=== PATIENT | female | born 1950 | race Caucasian/White ===

== ENCOUNTER 2023-10-02 17:34 | Emergency (ER) | payer MEDICARE, SELFPAY ==
[2023-10-02] VITALS (13 sets, daily range): BP systolic 81–124; BP diastolic 42–67; PULSE 79–91; RESP 16–25; TEMP 37.1–37.6; O2SAT 94–97
--- NOTE | ~2023-10-02 | CT_ITS ---
EXAMINATION: CT brain wo con DATE: 10/02/2023 17:52 INDICATION: headache . TECHNIQUE: Computed tomography (CT) of the head was performed without intravenous contrast. The mA wa s adjusted according to patient size. Iterative reconstruction technique was employed. The dose-lengt h product was 605.33 mGy-cm. COMPARISON: None. FINDINGS: No acute intracranial hemorrhage or extra-axial fluid collection. No hydrocephalus, mass, or herniation. No acute ischemic infarct. Unremarkable dural venous sinus attenuation. No acute osseous abnormality. The aerated spaces are clear. Mild atrophy and chronic white matter change. Atherosclerotic intracranial calcification. Bilateral l ens replacements. IMPRESSION: No acute intracranial process. Reviewed, dictated and finalized at location K.
--- NOTE | ~2023-10-02 | XR_ITS ---
EXAMINATION: XR chest 2V Exam Date/Time: 10/02/2023 17:48 CDT HISTORY: fever, WEAKNESS, DIZZINESS Comparison: None. RESULT: Lines, tubes, and devices: None. Lungs and pleura: Clear. Cardiomediastinal silhouette: Unremarkable. Other: No acute osseous or upper abdominal finding. IMPRESSION: No acute cardiopulmonary process. Reviewed, dictated and finalized at location K.
--- NOTE | 2023-10-02 17:40 | ECG_ITS ---
Test Date: 2023-10-02 18:52:30 Measurements Intervals [place] Rate: 86 P: 34 RI: 175 QRS: -21 QRSD: 93 T: 5 QT: 357 QTc: 428 Interpretive Statements SINUS RHYTHM DELAYED PRECORDIAL R/S TRANSITION LOW QRS VOLTAGE IN PRECORDIAL LEADS- ANT/INF LEADS BASELINE ARTIFACT- III, AVR, AVL, AVF, V5 BORDERLINE ECG No previous ECG available for comparison Electronically Signed On 10-02-2023 19:41:04 CDT by Shemar Thompson D.O.
--- NOTE | 2023-10-02 17:41 | ED.FEVER ---
HPI - Fever General Chief Complaint: Recheck/Abnormal Lab/Rx <Keysha Sanchez PA-C - Last Filed: 10/03/23 10:05> Stated Complaint: low blood pressure, febrile, dehydration, dizzines <Keysha Sanchez PA-C - Last Filed: 10/03/23 10:05> Time Seen by Provider: 10/02/23 17:42 <Keysha Sanchez PA-C - Last Filed: 10/03/23 10:05> Focused HPI: This is a 73-year-old female that presents to the emergency department for fevers. Ongoing over the last couple of days. Reports dizziness and lightheadedness. She was seen at urgent care and blood pressure noted to be low, sent to the ER for further evaluation. Reports intermittent headaches. Denies cough, congestion, sore throat, abdominal pain, vomiting, diarrhea, dysuria, or hematuria. GENERAL: Well-appearing, well-nourished, and in no acute distress. HEAD: Normocephalic, atraumatic. CHEST: Clear to auscultation. ?No respiratory distress. HEART: Regular rate and rhythm.? NEURO: ?Alert and oriented x3. Patient screened in triage and initial orders placed.? ?Additional care and disposition to be based upon?diagnostic testing and treatment. <Keysha Sanchez PA-C - Last Filed: 10/03/23 10:05> History of Present Illness HPI Narrative: Agree with HPI. Dizziness is worse with standing and looking down. Tends to fall to left. <Brian Feng MD - Last Filed: 10/02/23 18:17> Related Data Allergies/Adverse Reactions: Allergies Allergy/AdvReac Type Severity Reaction Status Date / Time nitrofurantoin Allergy Fever Verified 10/02/23 17:44 [From Macrobid] Sulfa (Sulfonamide AdvReac Hives Verified 10/02/23 17:44 Antibiotics) <Keysha Sanchez PA-C - Last Filed: 10/03/23 10:05> Review of Systems Review of Systems: All systems reviewed & are unremarkable except as noted in HPI and below <Brian Feng MD - Last Filed: 10/02/23 18:17> Constitutional: Constitutional: Reports chills, Reports fatigue and Reports fever(s) <Brian Feng MD - Last Filed: 10/02/23 18:17> ENT: Reports vertigo, Denies nasal congestion and Denies sore throat <Brian Feng MD - Last Filed: 10/02/23 18:17> Cardiovascular: Cardiovascular: Reports no additional cardiovascular complaints <Brian Feng MD - Last Filed: 10/02/23 18:17> Respiratory: Respiratory: Reports no additional respiratory complaints <Brian Feng MD - Last Filed: 10/02/23 18:17> Gastrointestinal: Gastrointestinal: Reports no additional gastrointestinal complaints <Brian Feng MD - Last Filed: 10/02/23 18:17> Genitourinary: Genitourinary: Reports no additional female genitourinary complaints <Brian Feng MD - Last Filed: 10/02/23 18:17> PMFSH Past Medical History Medical History: Medical History (Updated 10/03/23 @ 09:45 by Keysha Sanchez PA-C) History of hypertension <Keysha Sanchez PA-C - Last Filed: 10/03/23 10:05> Surgical History Surgical History: Surgical History (Updated 10/02/23 @ 18:16 by Brian Feng MD) No pertinent past surgical history <Keysha Sanchez PA-C - Last Filed: 10/03/23 10:05> Social History Social History: Social History (Updated 10/03/23 @ 09:44 by Keysha Sanchez PA-C) Smoking status: Never smoker <Keysha Sanchez PA-C - Last Filed: 10/03/23 10:05> Exam Narrative: GENERAL: Well-appearing, well-nourished, and in no acute distress. HEAD: Normocephalic, atraumatic. ENT: Mucous membranes moist. TMs normal bilaterally. CHEST: Clear to auscultation. No respiratory distress. HEART: Regular rate and rhythm. Normal peripheral pulses. ABDOMEN: Soft, nontender, nondistended. EXTREMITIES: Normal range of motion. No edema. SKIN: Warm, dry, no rash. NEURO: Alert and oriented x3. PSYCH: Normal mood and affect. <Brian Feng MD - Last Filed: 10/02/23 18:17> Course Vital Signs Vital signs: Vital Signs Temperature 99.6 F 10/02/23 17:37 Pulse Rate 91
[2023-10-02 18:38] LABS: Basophils Absolute Auto 0.1 K/mm3 (0.0-0.1); Basophils Percent Auto 0.5 % (0.2-1.2); Eosinophils Absolute Auto 0.1 K/mm3 (0-0.3); Eosinophils Percent Auto 0.7 % (0-4.4); Hematocrit 40.5 % (37.0-47.0); Hemoglobin 13.3 g/dL (12.0-15.0); Immature Granulocyte Absolute 0.03 K/mm3 (0.00-0.031); Immature Granulocyte Percent A 0.2 % (0-0.5); Lymphocytes Absolute Auto 1.39 K/mm3 (0.9-3.2); Lymphocytes Percent Auto 11.2 % (18.3-44.2); Mean Corpuscular HGB Conc 32.8 g/dl (32-36); Mean Corpuscular Hemoglobin 29.6 pg (26-34); Mean Platelet Volume 10.6 fl (7.4-10.4); Monocytes Absolute Auto 1.3 K/mm3 (0.1-0.6); Monocytes Percent Auto 10.5 % (2.6-8.5); Neutrophils Absolute Auto 9.6 K/mm3 (1.3-6.7); Neutrophils Percent Auto 76.9 % (45.5-73.1); Platelet Count Result 208 k/mm3 (150-375); Red Cell Distribution Width 14.4 % (11.5-14.5); White Blood Count 12.4 K/mm3 (4.5-10.0)
[2023-10-02 18:48] LABS: INR 1.1; Prothrombin Time 14.9 Seconds (11.1-14.7)
[2023-10-02 18:49] LABS: Partial Thromboplastin Time 28.8 Seconds (22.3-36.8)
[2023-10-02 19:01] LABS: Appearance Urine Turbid (Clear); Bacteria Urine 4+ /hpf; Bilirubin Urine Negative (Negative); Blood Urine Trace (Negative); Color Urine Dark Yellow (Yellow); Glucose Urine UA Negative (Negative); Ketones Urine 1+ mg/dL (Negative); Leukocyte Esterase Ur 3+ LEU/UL (Negative); Need Manual Microscopic Reviewed; Nitrate Urine Positive (Negative); Protein Urine 1+ mg/dL (Negative); RBC Urine 0-2 /hpf (0-2); Specific Grav Ur 1.018 (1.001-1.035); Squamous Epithelial Cell Urine Many /hpf (Few); WBC Urine >100 /hpf (0-3); pH Urine 5.5 (5.0-9.0)
[2023-10-02 19:06] LABS: Add Urine Microscopic? YES
[2023-10-02] MEDS: KETOROLAC 15 MG/ML VIAL (*BKC) IV PUSH (19:08)
[2023-10-02] MEDS: SODIUM CHLORIDE 0.9% IV 1,000 ML 999 ML IV CONT (19:08)
[2023-10-02 19:14] LABS: Influenza A QL RT-PCR Negative (Negative); Influenza B QL RT-PCR Negative (Negative); RSV RNA, RT-PCR Negative (Negative); SARS-CoV-2 RNA PCR Negative (Negative)
[2023-10-02 19:22] LABS: Alanine Aminotransferase 26 U/L (6-35); Albumin Level 3.9 g/dL (3.5-5.1); Alkaline Phosphatase 81 U/L (38-126); Anion Gap 11 mmol/L (4-12); Aspartate Amino Transferase 32 U/L (14-36); Blood Urea Nitrogen 27 mg/dL (7-17); Calcium 9.6 mg/dL (8.4-10.2); Carbon Dioxide 22 mmol/L (22-30); Chloride 101 mmol/L (98-107); Estimated CRCL calculation 35 ml/min; Estimated Glomerular Filt Rate 37; Glucose 109 mg/dL (65-110); Sodium 134 mmol/L (137-145)
[2023-10-02 19:46] LABS: Creatine Kinase 54 U/L (30-135)
[2023-10-02 20:18] LABS: CRP 24.9 mg/dL (<1.0)
== END 2023-10-02 23:40 | disposition home or self-care (01) ==
PROVIDERS: Physician Assistant; Emergency Provider Emergency Medicine
DX: N30.00 Acute cystitis without hematuria (principal); Z20.822 Contact with and (suspected) exposure to COVID-19; I10 Essential (primary) hypertension
CPT/HCPCS: 36415; 70450; 71046; 80053; 81001; 82550; 83605; 85025; 85610; 85730; 86140; 87040; 87077; 87086; 87186; 87637; 93005; 96361; 96374; 96375; 99284; J0696; J1885; J7030

== ENCOUNTER 2024-09-02 09:49 | Outpatient (CLI) | payer MEDICARE, SELFPAY ==
--- NOTE | ~2024-09-02 | XR_ITS ---
Left Hand Technique: PA, oblique, and lateral views were obtained. Clinical History: Arthritis Findings: No acute fracture or dislocation is seen. Osseous alignment is anatomic. There is advanced degenerative change of the first CMC joint. Soft tissues are unremarkable. 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 Reviewed, dictated and finalized at location . 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
--- OUTSIDE RECORDS SUMMARY | 2024-09-02 10:36 | XMS_ITS | Referral Summary ---
Author Organization [facility] [address] [facility] Address [address] [place] [address] Care Team Providers Care Nut Sifter Name Role Phone Cynthia House MD Primary Care Provider [phone] Chase Mora DPT Unavailable [phone] Allergies Active Allergy Reactions Criticality Noted Date Comments Phenazopyridine Fever Medium 01/18/2021 Mirtazapine Unknown 04/19/2014 Nitrofurantoin Shortness of breath High 04/19/2014 Paroxetine Unknown 04/19/2014 Sulfa (Sulfonamide Antibiotics) Fever Medium 03/22 Medications OneTouch Verio test strips strip TEST BLOOD SUGAR ONCE DAILY DIRECTED 11/05/2020 Active cholecalciferol (VITAMIN D-3) 25 mcg (1,000 unit) tablet Take 2,000 Units by mouth daily Active cyanocobalamin (Vitamin B-12) 1,000 mcg tablet Take 1,000 mcg by mouth daily Active OneTouch Delica Plus Lancet 33 gauge misc TEST BLOOD SUGAR ONCE DAILY 11/05/2020 Active losartan (COZAAR) 25 mg tablet TAKE 1 TABLET(25 MG) BY MOUTH DAILY 11/27/2020 Active meloxicam (MOBIC) 15 mg tablet Take 15 mg by mouth daily 11/05/2020 Active oxybutynin XL (DITROPAN-XL) 5 mg 24 hr tablet TAKE 1 TABLET(5 MG) BY MOUTH DAILY 12/25/[address] (PROTONIX) 40 mg EC tablet Take by mouth daily 11/30/2020 Active propranoloL (INDERAL) 20 mg tablet Take 1 tablet by mouth 2 (two) times a day 10/14/2020 Active Active Problems Problem Noted Date Diagnosed Date Prediabetes 10/27/2020 Other chronic pain 06/26/2018 Right shoulder pain 06/26/2018 Incontinence 05/16/2018 Cataracts, bilateral 04/22/2016 Insomnia 01/18/2016 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 Never 01/18/2021 Average Number of Drinks Not on file 021 Frequency of Binge Drinking Not on file 03/2020 Personal Safety Answer Date Recorded Getting School Help Needed Not on file 06/03 Comments Unknown Sex and Gender Information Value Date Recorded Sex Assigned at Not on file Legal Sex Female 10:19 AM CDT Gender Identity Not on file Sexual Orientation Not on file Last Filed Vital Signs Vital Sign Reading Time Taken Comments Blood Pressure 123/61 09/27/2021 11:03 AM CDT Pulse 61 09/27/2021 11:03 AM CDT Temperature - - Respiratory Rate 16 09/27/2021 11:03 AM CDT Oxygen Saturation - - Inhaled Oxygen Concentration - - Weight 88.5 kg (195 lb) 01/18/2021 10:57 AM CDT Height 168.9 cm (5' 6.5) 01/18/2021 10:57 AM CD T Body Mass Index 31 01/18/2021 10:57 AM CDT Plan of Treatment Not on file Insurance [facility] MEDICARE ADVANTAGE [facility] MEDICARE ADVANTAGE Care Teams Nut Sifter Relationship Specialty Start Date End Date Cynthia House MD [address] [place] [address] PCP - General Family Practice 11/26/20 Chase Mora DPT [id number] [facility] [address] [address] [place] [address] Physical Therapist Physical Therapy 03/04/21
--- OUTSIDE RECORDS SUMMARY | 2024-09-02 10:36 | XMS_ITS | Continuity of Care Document ---
Author Organization [facility], L TD Address [address] [place] [address] Phone Care Team Providers Care Side Trimmer Name Role Phone Oberreiter OD, Maggie Unavailable Unavailabl e Allergies, Adverse Reactions, Alerts Substance Reaction Status Criticality NITROFURANTOIN MACROCRYSTALLINE Trouble Breathing Acti ve Low nitrofurantoin Trouble Breathing Active Low Sulfa (Sulfonamide Antibiotics) Fever Active Low Medications Medication Instructions Dosage Effective Dates (start - stop) Status Comments Miebo (PF) 100 % eye drops instil 1 gt BID OU - Active TheraTears 1 % gel in a dropperette instil 1 gt PRN OU - Active ZEPBOUND (unknown strength) inject by subcutaneous route every week Not Available - Active Xiidra 5 % eye drops in a dropperette instill 1 drop by ophthalmic route 2 times every day into both eyes approximately 12 hours apart 1.00 drop - Active pregabalin 75 mg capsule take 1 capsule by oral route 2 times every day 75 MG - Active meloxicam 7.5 mg tablet take 1 tablet by oral route every day 7.5 MG - Active duloxetine 20 mg capsule,delayed release take 1 capsule by oral route 2 times every day 20 MG - Active RANITIDINE HCL (unknown strength) take 1 tablet by oral route 2 times every day Not Available - Active LOSARTAN POTASSIUM (unknown strength) take 1 tablet by oral route every day Not Available - Active Lo-Dose Aspirin 81 mg tablet,delayed release take 1 tablet by oral route every day - Active Procedures Procedure Date EYE EXAM ESTABLISHED PAT REFRACTION EYE EXAM ESTABLISHED PAT EYE EXAM ESTABLISHED PAT REFRACTION NO CHARGE EYE EXAM ESTABLISHED PAT EYE EXAM ESTABLISHED PAT EYE EXAM ESTABLISHED PAT REFRACTION EYE EXAM ESTABLISHED PATIENT EYE EXAM ESTABLISHED PAT COVER EYE W/MEMBRANE Scan Image OCT/Retinal Bandage CL Fitting Prokera Ring/BioDOptix membrane/Amniotic Membrane EYE EXAM ESTABLISHED PAT EYE EXAM ESTABLISHED PAT REFRACTION Wellness/Screening Photo PUNCTAL PLUGS EYE EXAM ESTABLISHED PATIENT REFRACTION EYE EXAM ESTABLISHED PATIENT POST CATARACT LASER SURGERY, YAG LASER M FUNDUS PHOTOGRAPHY POST CATARACT LASER SURGERY, YAG LASER M EYE EXAM ESTABLISHED PATIENT EYE EXAM ESTABLISHED PAT EYE EXAM ESTABLISHED PAT Bandage CL Fitting EYE EXAM ESTABLISHED PAT REFRACTION PUNCTAL PLUGS EYE EXAM ESTABLISHED PATIENT EYE EXAM ESTABLISHED PAT EYE EXAM ESTABLISHED PATIENT, MEDICAL Ju Postoperative Exam Postoperative Exam Postoperative Exam Postoperative Exam REFRACTION NO CHARGE Postoperative Exam CATARACT SURG W/IOL Multi-Focal With ARC, LenSx, Each Eye Ma IOL MASTER, PROF COMP ONLY Prepay Postoperative Exam CATARACT SURG W/IOL Multi-Focal With ARC, LenSx, Each Eye Fe Post Operative Kit / Medical Supply By P rescription Prepay IOL MASTER CORNEAL TOPOGRAPHY EYE EXAM ESTABLISHED PATIENT, MEDICAL Ja INSERT INITIAL PLUG, RIGHT LOWER LID Mar INSERT INITIAL PLUG, LEFT LOWER LID Scan Image OCT/Retinal INCLUDED CONTACT LENS EXAM EYE EXAM, EXISTING PATIENT VISION REFRACTION OPTIONAL UPDATE EYE EXAM, NEW PATIENT MEDICAL 4 Advance Directives Directive Yes / No Effective Date File Name No Information Encounters Encounter Description Practice Location Reason(s) For Visit Diagnoses Date Provider Providers Copied on Encounter [facility], [address] [place] [address], [id number] , [phone] [facility] f/u Dry Eye OU (chief complaint) Dry eye syndrome of bilateral lacrimal glands 5 Antonia Serrano. [address], [place], [place], [id number], [place]. tel:[phone] Referring Provider: Maggie Lee [address], [place], [address]. tel:[phone] [facility], [facility], [address] [place] [address], [id number] , [place] [phone] [facility] vision exam (chief complaint) PrediabetesE ndothelial corneal dystrophy, bilateralDry eye syndrome of bilateral lacrimal glandsMyopia , left eyePresbyopi aRegular astigmatism, bilateralVit reous degeneration , bilateralPun ctate keratitis, right eye 5 Antonia Serrano. [address], [place], [place], [id number], [place]. tel:[phone] Referring Provider: Patrizia Ortega [address], [place], [address]. tel:[phone] [facility], [address] [place] [address], [id number] , [place] tel: [phone] [facility]- No Information 4 Obed Serrano. [address], [place], [place], [id number], [place]. tel:[phone] [facility], [address] [place] [address], [id number] , [place] tel: [phone] [facility] f/u Neurotrophic Keratoconjunc tivitis OU (chief complaint) Neurotrophic keratoconjun ctivitis, bilateralDry eye syndrome of bilateral lacrimal glandsEndoth elial corneal dystrophy, bilateral 4 Oberreitjame Serrano. [address], [place], [place], [id number], [place]. tel:[phone] Referring Provider: Maggie Lee, [address], [place], [address]. tel:[phone] [facility], [address] [place] [address], [id number] , [place] tel:[phone] [facility] f/u Neuratrophic keratoconjunc tivitis (chief complaint) Neurotrophic keratoconjun ctivitis, bilateral 3 Antonia Serrano. [address], [place], [place], [id number], [place]. tel:[phone] Referring Provider: Maggie Lee, [address], [place], [address]. tel:[phone] [facility], [address] [place] [address], [id number] , [place] tel:[phone] [facility] f/u Neurotrophic Keratoconjuct ivitis (chief complaint) Neurotrophic keratoconjun ctivitis, bilateral 3 Antonia Serrano. [address], [place], [place], [id number], [place]. tel:[phone] Referring Provider: Maggie Lee, [address], [place], [address]. tel:[phone] [facility], [address] [place] [address], [id number] , [place] tel:[phone] [facility] f/u Corneal Dystrophy OU, Vitreous Degen OD, (chief complaint) Neurotrophic keratoconjun ctivitis, bilateral 3 Antonia Serrano. [address], [place], [place], [id number], [place]. tel:[phone] Referring Provider: Maggie Lee, [address], [place], [address]. tel:[phone] [facility], [address] [place] [address], [id number] , [place] tel:[phone] [facility] blurry vision OU (chief complaint) Dry eye syndrome of bilateral lacrimal glandsPresen ce of intraocular lensHypermet ropia, right eyeMyopia, left eyeRegular astigmatism, bilateralPre sbyopiaEndot helial corneal dystrophy, bilateralVit reous degeneration , right eyeNeurotrop hic keratoconjun ctivitis, bilateral 3 Antonia Serrano. [address], [place], [place], [id number], [place]. tel:[phone] Referring Provider: Maggie Lee, [address], [place], [address]. [phone] [facility], [address] [place] [address], [id number] , [place] tel:[phone] [facility] f/u Fuchs OU and Dry Eye Syndrome OU (chief complaint) Endothelial corneal dystrophy, bilateralDry eye syndrome of bilateral lacrimal glandsMyopia , left eyePresbyopi a Sep-2 3-202 2 Oberreiter Maggie. [address], [place], [place], [id number], [place]. tel:[phone] Referring Provider: Maggie Lee, [address], [place], [address]. tel:[phone] [facility], [address] [place] [address], [id number] , [place] tel:[phone] [facility] F/u K sicca, Dry Eye (chief complaint) Dry eye syndrome of bilateral lacrimal glandsEndoth elial corneal dystrophy, left eyeEndotheli al corneal dystrophy, right eyeEndotheli al corneal dystrophy, bilateral 2 Oberreiter Maggie. [address], [place], [place], [address], [place]. tel:[phone] Referring Provider: Maggie Lee, [address], [place], [address]. tel:[phone] [facility], [address] [place] [address], [id number] , [place] tel:[phone] [facility] dryness, irritation and slight burning (chief complaint) Keratoconjun ctivitis sicca, not specified as Sj g meagan's, bilateralDry eye syndrome of bilateral lacrimal glands 2 Oberrjavier Serrano. [address], [place], [place], [id number], [place]. tel:[phone] Referring Provider: Maggie Lee, [address], [place], [address]. tel:[phone] [facility], [address] [place] [address], [id number] , [place] tel:[phone] [facility] blurry vision OU (chief complaint) PresbyopiaPr ediabetesPre sence of intraocular lensDry eye syndrome of bilateral lacrimal glandsEncoun ter for examination of eyes and vision with abnormal findingsOthe r vitreous opacities, bilateralDry eye syndrome of right lacrimal glandKeratoc onjunctiviti s sicca, not specified as Sj g meagan's, bilateralHyp ermetropia, right eyeRegular astigmatism, right eyeMyopia, left eye David-0 2 Antonia Serrano. [address], [place], [place], [id number], [place]. tel:[phone] Referring Provider: Maggie Lee, [address], [place], [address]. tel:[phone] [facility], [address] [place] [address], [id number] , [place] tel: [phone] [facility] has improved (chief complaint)VA has improved (chief complaint) Other specified postprocedur al statesPresen ce of intraocular lensRegular astigmatism, left eyePresbyopi Navin eye syndrome of bilateral lacrimal glandsVitreo us degeneration , right eye Mar-2 1 Antonia Serrano. [address], [place], [place], [id number], [place]. tel:[phone] [facility], [address] [place] [address], [id number] , [place] tel: [phone] [facility] blurry vision (chief complaint)geoffrey rry vision (chief complaint) Other secondary cataract, left eye May-1 1 Martin Stone. [address] [place] [address], [id number], [place]. tel:[phone] [facility], [address] [place] [address], [id number] , [place] tel: [phone] [facility] blurry vision (chief complaint)geoffrey rry vision (chief complaint) Presence of intraocular lensOther secondary cataract, bilateralVit reous degeneration , right eyeOther secondary cataract, right eyeDrusen (degenerativ e) of macula, bilateral Mar-0 1 Martin Stone. [address] [place] [address], [id number], [place]. tel:[phone] [facility], [address] [place] [address], [id number] , [place] tel: [phone] [facility] Sx improving (chief complaint)Sx improving (chief complaint) Injury of conjunctiva and corneal abrasion without foreign body, left eye, subsequent encounter 1 Oberreiter Maggie. [address], [place], [place], [id number], [place]. tel:[phone] [facility], [address] [place] [address], [id number] , [place] tel: [phone] [facility] Pain has resolved, vision remains blurry (chief complaint)Maximiliano n has resolved, vision remains blurry (chief complaint) Injury of conjunctiva and corneal abrasion without foreign body, left eye, sequelaPrese nce of intraocular lensOther secondary cataract, bilateral 1 Oberreiter Maggie. [address], [place], [place], [id number], [place]. tel:[phone] [facility], [address] [place] [address], [id number] , [place] tel: [phone] [facility] pain, watering, redness, blurry vision (chief complaint)maximiliano n, watering, redness, blurry vision (chief complaint) Injury of conjunctiva and corneal abrasion without foreign body, left eye, initial encounter 1 Oberreiter Maggie. [address], [place], [place], [id number], [place]. tel:[phone] [facility], [address] [place] [address], [id number] , [place] tel: [phone] [facility] no problems with vision and no complaints (chief complaint)Pt. declines Wellness/Scre ening photos (chief complaint)no problems with vision and no complaints (chief complaint)Pt. declines Wellness/Scre ening photos (chief complaint) PresbyopiaPr esence of intraocular lensRegular astigmatism, right eyeOther secondary cataract, bilateralTea r film insufficienc y of bilateral lacrimal glands 9 Oberreiter Maggie. [address], [place], [place], [id number], [place]. tel:[phone] [facility], [address] [place] [address], [id number] , [place] tel: [phone] [facility] no problems with vision and no complaints (chief complaint)no problems with vision and no complaints (chief complaint) Dry eye syndrome of bilateral lacrimal glands 8 Oberreiter Maggie. [address], [place], [place], [id number], [place]. tel:[phone] [facility], [address] [place] [address], [id number] , [place] tel: [phone] [facility] blurry near vision sc gls (chief complaint)geoffrey rry near vision sc gls (chief complaint) Presence of intraocular lensOther secondary cataract, bilateralDry eye syndrome of right lacrimal glandDry eye syndrome of left lacrimal gland 8 Oberreiter Maggie. [address], [place], [place], [id number], [place]. tel:[phone] [facility], [address] [place] [address], [id number] , [place] tel: [phone] [facility] blurry vision (chief complaint)geoffrey rry vision (chief complaint) Cataract extraction status, right eyeCataract extraction status, left eyePresence of intraocular lensDry eye syndrome of bilateral lacrimal glandsVitreo us degeneration , right eye 7 Oberreiter Maggie. [address], [place], [place], [id number], [place]. tel:[phone] [facility], [address] [place] [address], [id number] , [place] tel: [phone] [facility] continued blurry vision (chief complaint)con tinued blurry vision (chief complaint) Presence of intraocular lensCataract extraction status, right eyeCataract extraction status, left eyeKeratocon junctivitis sicca, not specified as Sj g meagan's, bilateral Oberreiter Maggie. [address], [place], [place], [address], [place]. [phone] [facility], [address] [place] [address], [id number] , [place] tel:[phone] [facility] continued blurry vision (chief complaint)con tinued blurry vision (chief complaint) Presence of intraocular lensCataract extraction status, right eyeCataract extraction status, left eyeDry eye syndrome of bilateral lacrimal glands Jun- Oberreiter Maggie. [address], [place], [place], [address], [place]. tel:[phone] [facility], [address] [place] [address], [id number] , [place] tel:[phone] [facility] decreased vision (chief complaint)dec reased vision (chief complaint) Cataract extraction status, right eyeCataract extraction status, left eyePresence of intraocular lensDry eye syndrome of bilateral lacrimal glandsBilate ral keratoconjun ctivitis sicca, not specified as Sjogren's Oberreiter Maggie. [address], [place], [place], [id number], [place]. tel:[phone] [facility], [address] [place] [address], [id number] , [place] tel:[phone] [facility] blurry vision OD (chief complaint)scr atchy sensation OD (chief complaint)vis ion is improved OS (chief complaint)geoffrey rry vision (chief complaint)scr atchy sensation (chief complaint)vis ion is improved (chief complaint) No Information Mar-0 Oberreiter Maggie. [address], [place], [place], [id number], [place]. tel:[phone] [facility], [address] [place] [address], [id number] , [place] tel: [phone] [facility] No Information 7 Martin Stone. [address] [place] [address], [id number], [place]. tel:[phone] [facility], [address] [place] [address], [id number] , [place] tel: [phone] [facility] No Information 0 7 Martin Stone. [address] [place] [address], [id number], [place]. tel:[phone] Referring Provider: Chase Lee, [address] [place] [address], [address]. tel:[phone] [facility], [address] [place] [address], [id number] , [place] tel:[phone] [facility] No Information 7 Martin Stone. [address] [place] [address], [id number], [place]. tel:[phone] [facility], [address] [place] [address], [id number] , [place] tel:[phone] [facility] vision is improved OS (chief complaint)den ies pain or discomfort OS (chief complaint)no change in vision OD (chief complaint)vis ion is improved (chief complaint)den ies pain or discomfort (chief complaint)no change in vision (chief complaint) No Information 7 Antonia Serrano. [address], [place], [place], [id number], [place]. tel:[phone] [facility], [address] [place] [address], [id number] , [place] tel:[phone] [facility] No Information 7 Martin Stone. [address] [place] [address], [id number], [place]. tel: [phone] [facility], [address] [place] [address], [id number] , [place] tel: [phone] [facility] No Information 7 Oberreiter Maggie. [address] [place], [place], [id number], [place]. [phone] [facility], [address] [place] [address], [id number] , [place] tel: [phone] [facility] No Information 7 Martin Stone. [address] [place] [address], [id number], [place]. tel: [phone] Referring Provider: Chase Lee, [address] [place] [address], [address]. tel:[phone] [facility], [address] [place] [address], [id number] , [place] tel: [phone] [facility] . (chief complaint) No Information 7 Martin Stone. [address] [place] [address], [id number], [place]. tel:[phone] [facility], [address] [place] [address], [id number] , [place] tel: [phone] [facility] blurry vision (chief complaint)geoffrey rry vision (chief complaint) PresbyopiaRe gular astigmatism, bilateralDry eye syndrome of bilateral lacrimal glandsCatara ct extraction status, right eyeCataract extraction status, left eye 7 Martin Stone. [address] [place] [address], [id number], [place]. tel:[phone] [facility], [address] [place] [address], [id number] , [place] tel: [phone] [facility] No Information 0 6 Oberreiter Maggie. [address], [place], [place], [id number], [place]. [phone] [facility], [facility], [address] [place] [address], [id number] , tel:[phone] [facility] blurry vision, glare (chief complaint)geoffrey rry vision, glare (chief complaint) Myopia, bilateralTea r film insufficienc y of bilateral lacrimal glands 6 Oberreiter Maggie. [address], [place], [place], [id number], [place]. tel:[phone] [facility], [address] [place] [address], [id number] , tel:[phone] [facility] shimmering light (chief complaint) Senile nuclear sclerosisTea r film insufficienc y, unspecifiedS enile nuclear sclerosisTea r film insufficienc y, unspecifiedO ther forms of migraine without mention of intractable migraineOthe r forms of migraine without mention of intractable migraine Oberreiter Maggie. [address], [place], [place], [id number], [place]. tel:[phone] Family History Family Member Type Diagnosis Age At Onset Mother Problem (finding) glaucoma Mother Problem (finding) diabetes melli tus in first degree relative parents Problem (finding) cataract Mother Problem (finding) HBP Problem (finding) No Family hist ory of Macular Degeneration Payers Payer name Insurance type Covered green party ID Authoriza tion(s) [employer] [id number] Social History Type Description Quantity Date Captured Comments Alcohol Use Details Caffeine Use Details Tobacco Use Status Current non-smoker Smoking Status Never smoker Non-Smoking Tobacco Use Details : No Details Available : No Details Available Sex Female Chief Complaint And Reason For Visit From encounter dated '06/05/2024 09:45'. f/u Dry Eye OU (chief complaint). Description: The 73 year old patient presents for f/u Dry Eye OU.Pt. states D and N vision OU c gls has been good and stable. Pt. denies pain and feels dryness has improved. Pt. is using Xiidra BID OU and Miebo BID OU (doesn't always use BID OU every day on Xiidra or Miebo) and Refresh angel QHS OU. Pt. states she feels using angel at nighttime has greatly im proved dryness. Reason For Referral Reason For Referral No Information Plan Of Treatment Date Type Action Status Future Order: Radiology Order We llness/Screening Photo ([id number]), Collected on: Ordered History Of Present Illness Encounter Date Complaint History Of Prese nt Illness f/u Dry Eye OU The 73 year old patient presents for f/u Dry Eye OU. Pt. states D and N vision OU c gls has been good and stable. Pt. denies pain and feels dryness has improved. Pt. is using Xiidra BID OU and Miebo BID OU (doesn't always use BID OU every day on Xiidra or Miebo) and Refresh angel QHS OU. Pt. states she feels using angel at nighttime has greatly improved dryness. vision exam The 73 year old patient presents for vision exam, Fuch's OU, IOL OU, Dry Eye OU, Pre-Diabetic Exam. Pt. states for the past 3 months, D and N vision OU c gls has decreased. Pt. states everything is very blurry. Pt. states she believes the decrease in vision is from the dryness. Pt. states she has been on Zepbound for almost 1 yr and would like to know if that can cause a decrease in vision. pt. states for the past 2-3 months, vision has been so blurry, she is seeing double vision. Images are vertical, but slightly horizontal. Pt. denies pain OU, but states OU feel dry. Pt. states she does not remember to use Xiidra and uses TheraTears PRN OU c short term relief. Pt. is Pre-Diabetic. pt. is supposed to control DM with diet/exercise. Pt. is unsure if BS are stable. pt. would like letter sent to PCP Dr. Cynthia House. f/u Neurotrophic Keratoconjunctivitis OU The 72 year old patient presents for f/u Neurotrophic Keratoconjunctivitis OU. Pt. states D and N vision OU c gls has been unchanged since last visit. Pt. states she has not noticed any improvident since using Oxervate. Pt. denies pain currently. pt. states the last 2 days of she was to use Oxervate, she did not, 03/13 and 03/14. Pt. states [place] was [id number] and did not get the change to use them. Pt. is currently using iVizia PRN OU c relief. f/u Neuratrophic keratoconjunctivitis The 72 year old patient presents for evaluation of f/u Neuratrophic keratoconjunctivitis. Pt states DVA and NVA is okay c gls OU, same as last exam. Pt says she feels like OU are bruised, and rubbing them makes it worse. Pt is using Oxerate 1 gt OU every 2-6 hours. f/u Neurotrophic Keratoconjuctivitis The 72 year old patient presents for evaluation of f/u Neurotrophic Keratoconjuctivitis. Pt states DVA and NVA is good c gls OU. Pt states the drops sting and make OU feel bruised. Pt is using Oxervate 1 gt OU 2-6x day. f/u Corneal Dystroph y OU, Vitreous Degen OD, The 72 year old patient presents for evaluation of f/u Corneal Dystrophy OU, Vitreous Degen OD, Neurotrophic Keratoconjunctivitis OU and Dry Eye OU. Pt sttaes DVA and NVA is still blurry OU c gls. Pt states she feels like OU are bruised but they are just sore, she feels this constantly. Pt is using Oxervate 1 gt OU 6x day. blurry vision OU The 72 year old patient presents for blurry vision OU. Pt. states about 6 weeks ago, she was prescribed a new med Topamax and after beginning that, her vision became very blurry D and N c gls and she was not able to see well enough to drive or read. Pt. states she has since decreased the dose of Topamax and now her vision is not as blurry as it was on the stronger dose. Pt. states her vision was slightly blurry prior to taking Topamax, but not as severe and believes the medication has caused her vision to be blurry. pt. states her mother had glaucoma and she is concerned she may be developing glaucoma. Pt. states OU are dry and uses Xiidra BID OU and AT (unsure brand) PRN OU c relief. f/u Fuchs OU and Dry Eye Syndrome OU The 71 year old patient presents for evaluation of f/u Fuchs OU and Dry Eye Syndrome OU. Pt states vision has slightly improved since last visit. PT states BCL fell out yesterday sometime in OS. No pain or discomfort. Pt using Xiidra BID OD and IVizia 2-3 times a day OU. F/u K sicca, Dry Eye The 71 year old patient presents for evaluation of F/u K sicca and Dry Eye in the right eye and left eye. PT reports dryness still present OU. PT reports blurry vision. It affects both near and far vision. PT reports roadsigns and reading fine print has become impossible and has to use Magnifying glass for NVA. PT reports eyes feel irritated and very dry and tired. Patient denies: pain. PT using Xiidra BID OU c relief. PT using OTC AT QD/BID OU c relief. dryness, irritation and slight burning The 71 year old patient presents for F/u Dry Eye OU & evaluation of dryness, irritation and slight burning in the right eye and left eye since last exam. Pt notices the same amount of blurry vision in OU. It affects DVA c gls. Pt denies any issues c NVA c gls. Patient denies: change in vision. Currently using Restasis OU BID & OTC AT OU QAM/BID c slight relief. blurry vision OU The 71 year old patient presents for f/u Refractive Error OU, Dry Eye OU, IOL OU, and Vitreous Degeneration OU. PT reports of blurry vision OU in the right eye and left eye. It started 6+ months ago. It affects both D & N vision c gls OU. PT denies pain or discomfort. PT is using OTC AT OU BID OU without relief. VA has improved The 69 Year old female presents for f/u Post Op YAG OU. Pt reports VA has improved in the right eye and left eye since YAG laser. It affects both near and far vision. The patient denies COVID-19 symptoms - temperature normal and pain or discomfort. Pt uses OTC AT BID OU c relief. blurry vision The 69 Year old female presents for YAG OS. Pt reports blurry vision in the left eye gradually over time got worse. It affects both near and far vision. Pt says VA has improved since laser OD but still having lots of floaters. The patient denies pain or discomfort and COVID-19 symptoms - temperature normal. Pt using OTC AT BID OU. blurry vision The 69 Year old female presents for Yag Eval OU. Pt reports blurry vision in the right eye and left eye a couple of months. It affects both near and far vision. Watching TV has gotten worse. Everything has a shadow and its hard to read. The patient denies pain or discomfort and COVID-19 symptoms - temperature normal. Pt using OTC AT at least once a day OU. Sx improving The 69 Year old female presents for F/U Corneal Abrasion OS and BCL in place OS. Pt reports Sx improving in the left eye since last exam. It affects both near and far vision OS c gls. The patient denies COVID-19 symptoms - temperature normal and pain or discomfort. Using Ofloxacin QID OS & OTC AT QID OD. Pain has resolved, v ision remains blurry The 69 Year old female presents for follow up Corneal Abrasion OS. Pt reports BCLs remains in good position. Pt reports pain has resolved, vision remains blurry in the left eye since last exam 5 days ago. The onset was gradual. It affects both near and far vision with gls. It occurs constantly. The condition is not any better. The patient denies pain or discomfort and COVID-19 symptoms - temperature normal. Pt is currently using Ofloxacin QID OS and AT's TID-QID OD. pain, watering, redn ess, blurry vision The 69 Year old female presents for pain, watering, redness, blurry vision in the left eye. It started about 4 hour(s) ago. The onset was this morning. It affects both near and far vision c gls. No sx OD. The symptom is constant. The patient denies COVID-19 symptoms - temperature normal. Pt uses AT PRN OU. no problems with vis ion and no complaints The 68 Year old female presents for F/U IOL OU, PCO OU & Sicca OU. Pt reports no problems with vision and no complaints in the right eye and left eye since last exam. Vision good, stable and constant D & N OU sc & c OTC readers. The patient denies pain or discomfort. No eye meds or OTC AT. Pt. declines [facility] s/Screening photos NOTE: Pt. declines Wellness/Screening photos no problems with vis ion and no complaints The 67 Year old female presents for F/U dry eye's, pt has MF IOL 05/2016. Pt reports of no new problems with vision and no complaints in the right eye and left eye. since last exam 1mo ago. Vision good, stable and constant D & N c gls.. The patient denies pain or discomfort. Using Xiidra OD BID (c/o gtt sting) , no gtts OS blurry near vision sc gls The 67 Year old female presents for follow-up of Presbyopia OU, Dry Eye OU, MF IOL OU, and a Hx of Histoplasmosis. Pt. reports blurry near vision sc gls in the right eye and left eye since last exam. It affects near vision. Pt. has gls made for near vision elsewhere. She states it is frustrating to need to use them. Distance vision is good, stable, & constant sc. The patient denies pain or discomfort. No eye meds. blurry vision The 66 Year old female presents for follow up of MF IOL Symfony LenSx c ARC OU (OS-05/10/16, OD-05/24/16 [facility]). Pt reports of blurry vision in the right eye and left eye since last exam 6 months ago. It affects near vision. DVA is good and stable sc OU. The patient denies pain or discomfort, but complains of glare OD>OS. Pt has not been using Xiidra gtts. continued blurry vision The 66 Y ear old female presents for follow up of Dry Eye OU. Pt reports of continued blurry vision in the right eye and left eye since last exam 1 month ago. It affects near vision c OTC readers OU. DVA is good and stable sc OU. The patient denies pain or discomfort. Using Xiidra gtt BID OU, and AT gtt PRN OU. continued blurry vision The 65 Y ear old female presents for F/U dry eye's. Patient has a HX of Symphony MF IOL OU. Patient reports of continued blurry vision in the right eye and left eye. It affects near vision. The patient denies pain or discomfort. Using Xiidra OU BID, and AT OU BID decreased vision The 65 Year old female presents for follow up of MF IOL c LenSx c ARC OU (OD-05/24/16, OS-05/10/16). Pt reports of decreased vision in the right eye and left eye since having IOL. It affects near vision sc OU. DVA is improved, and stable sc OU. The patient denies pain or discomfort, but complains of glare at night. Using AT gtt PRN OU, and Pred Acetate gtt BID OU. scratchy sensation scratchy sens ation OD blurry vision blurry vision OD vision is improved vision is imp roved OS vision is improved vision is imp roved OS no change in vision no change in vision OD denies pain or discomfort denies pain or discomfort OS blurry vision The 65 Year old female presents as a new patient to [facility], refer'd by NELSON for Cataract. Patient complains of blurry vision in the right eye and left eye. x several months ago. The onset was gradual. It affects both near and far vision. It occurs constantly. The condition is worsening. The patient denies pain or discomfort. No gtts blurry vision, glare The 65 Year old female presents for f/u of Cataracts OU, and hx of Ocular Migraines. Pt reports of blurry vision, glare in the right eye and left eye, since last exam 2 years ago. It affects both near and far vision, pt is unsure if the decrease is due to cataracts of need for glasses. Pt states that lately it has been better for her to take glasses off to do any up close detail work. The patient denies pain or discomfort OU. Pt does not use any eye meds OU. 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 Related to Dry eye syndrome of bilateral lacrimal glands Follow up - Return i n 6 months with NELSON for T, Slamp. 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 Dry eye OS>OD: Corneas are mildly irregular OU. Tear B.U T. is 6 secs in the OD and 5 secs in the OS. Recommend Pt. continue using Xiidra for another month BID OU (was just OS). Gave another sample box. Pt. may stop when the sample box is gone. Recommend Pt. start using an artificial tear to use BID-QID OU. Pt. instructed to call with any problems, questions or concerns. Follow up in 6 months to check dryness. 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 Impression/Plan - 1. No MR performed today2. Implant OU centered, and in good position. Mild PCO has formed, however not ready for Laser treatment3. Pt does have very dry eye's OD>OS, will have pt re-start Xiidra (sample given) OD BID, no need to use in the OS. Follow up - Return i n 6 months with NELSON for Refract T & D. Impression/Plan - 1. IOL OU well centered with trace PCO. No surgery indicated at this time. Pt. is to let us know if vision becomes bothersome and we will have Pt. see RML for YAG laser. 2. Dry eye OU: Pt. is to continue using Artificial tears PRN OU. Plugs are in place BLL's today. 3. Recommned some kiah color tinted glasses for glare duting the day, Yello for driving at night. Set glasses Rx today for reading glasses to help with fine print. PL SPH OU with a +2.00 ADD. 4. Dermatochalasis BUL's: Pt. would like to see Dr. Umaña for evaluation. Will refer. Pt. instructed to call with any problems. See Pt. back in 6 months for yearly, dilated exam. Follow up - Return i n 6 months with NELSON for Refract, Deedee Man. Impression/Plan - 1. Well centered MF IOL's. Vision is 20/20 in the distance and 20/25 up close. Pt states computer reading is good, but really small fine print is difficult. 2. Dry eye OU: Moderate. Tear B.U T. today is 3 secs OD and 2 secs OS, improving since starting Xiidra, but still dry. Pt. is to continue using Xiidra BID OU. Pt. can continue using Artificial tears PRN OU for dryness and comfort. *Recommend waiting 6 months before updating glasses for reading. Pt wants to get plano glasses and reading at the bottom. Pt. instructed to call if she wants the reading glasses sooner and we can make the glasses Rx for reading. Per NELSON will N/C f/u in 6 months. Follow up - Return i n 1 month with NELSON for Deedee Man. Impression/Plan - 1. IOL OU: Well cemtered MF and vision continue to be stable. Pt is using readers for fine print. Recommend using +1.75 or +2.00's when needing to see fine print or anything small like sewing/needle work. Pt. feels like she even needs the readers at the grocery store when reading labels. 2. Dry eye OU: Improved since starting Xiidra. Plugs are still in BLL's Pt. is to continue using the Xiidra BID OU and Artificial tears PRN OU for dryness and comfort. Pt. instructed to call with any problems. See Pt. back in one more month and the determine from there what reading power will be needed. Follow up - Return i n 1 month with NELSON for Deedee Man. (dry eye f/u) Impression/Plan - 1. IOL OU: Well centered MF and vision is stable. Pt is to continue using the Pred Forte until the bottle is gone. 2. Dry eye OU: Moderate. Dryness is present OU with no improvement from use of artificial tears. performed fluorescein clearance test confirming suppressed tear production. Even with plugs, eyes are still very dry and will need to supplement with Xiidra. Start using Xiidra BID OU. 3. Pt can use a low power reader for sowing and very small print. Will re-evaluate in 1 month and verify what strength will be the best. Pt is to f/u in 1 month for dry eye f/u. Pt instructed to call with any problems. Follow up - per surgery Impression/Plan - Ba ck of the eyes look healthy. No glaucoma, mac degen, or retina problems. Eyes look very dry so inserted 0.6mm punctal plugs BLL to help better lubricate. This will give the eyes a better healing environment for the cataract surgery. Cataracts present OU; best option is surgery. Patient viewed Dr. Salazar's cataract video. In the video, explained cataract surgery procedure. Risks with surgery include bleeding, swelling, infection, need for more surgery and loss of vision. Only one eye is done at a time. May have irritation for a few days following surgery. IOL options to choose from based on the health of your eyes: 1. Basic cataract surgery: will need glasses distance & near after surgery. 2. Astigmatism correction: Best distance vision. Will need glasses for near. 3. Multifocal w/ some astigmatism correction: 95% of activities without glasses; may need glasses for very near tasks and low lighting situations. Pt. is a good LenSx candidate if she chooses PV. Pt. chooses LenSx c MF IOL OU (Symfony, will set slightly near on the non-dominant eye). Will do OS first, OD about a week or two later. In the future, may need laser on the cloudy membrane around the lens implant. Pt. to call if problems. Follow up - Return i n 1-2 weeks with NELSON for Contact Lens Fitting. prior to Cataract surg Impression/Plan - 1. opt. gls rx update avail, minimal change2. Dry eyes account for the patient's complaints. There is no evidence of permanent changes to the cornea. Explained that this condition does not have a cure. The options explained to the patient include topical lubricants, punctal plugs, and Restasis OU BID. Instructed to start AT OU 2-3 x daily. 3. Cataracts account for the patient's complaints. Explained patient does meet the criteria for surgical removal. Discussed risks, benefits, procedures and recovery. Patient understands changing glasses will not improve vision. Discussed different IOL options STD IOL vs MF IOL. Patient may try CL's prior to Cataract surgery, to see if she likes the vision with MF vs [place] vision. 4. Back of the eye looks great, no retinal tears or hole's. No glc/ARMD - Return in 1 year w logan NELSON for Ref T & D. Related to Ocular migraine cataract OU. Conditi on: will continue to monitor. Dry eyes OU. Condition: will continue to monitor. Ocular migraine . Condition: will continue to monitor. - 1. Dry Eye OU: Pt is to use Refresh liquid gel gtt OU QHS. 2. Cataracts OU: Cataracts are present OU and are not ready to be removed at this time. Explained to pt risk and benifits and they understand and accept.3. Ocular migraines: NELSON discussed that distorted vision was either ocular migraine or TIA. If this last longer then 20min, and her speech slurs she is to get ti the ER. Can't rule either out at this time. Pt is to monitor* Educational materials provided:none needed. Related to Ocular migraine Assessments Type Assessment Date assessment Dry eye syndrome of bilateral la crimal glands Patient Care Teams Name Effective Dates (start - stop) Status Members No Information
--- OUTSIDE RECORDS SUMMARY | 2024-09-02 10:36 | XMS_ITS | Encounter Summary ---
Author Organization [facility] Healthcare Address [address] [place] [address] Care Team Providers Care Mri Technician Name Role Phone Cynthia House MD Primary Care Provider [phone] Chase Mora DPT Unavailable [phone] Encounter Details Date Type Department Care Team (Late st Contact Info) Description 02/18/2021 Telephone [facility] [address] [place] [id number] [address], [place] Social History Tobacco Use Types Packs/Day Years Used Date Smoking Tobacco: Never AUDIT-C Answer Date Recorded Q1: How often do you have a drink containing alc ohol? Never 01/18/2021 Average Number of Drinks Not on file 021 Frequency of Binge Drinking Not on file 03/2020 Comments Unknown Sex and Gender Information Value Date Recorded Sex Assigned at Not on file Legal Sex Female 10:19 AM CDT Gender Identity Not on file Sexual Orientation Not on file documented as of this encounter Plan of Treatment Not on file documented as of this encounter Visit Diagnoses Not on filedocumented in this encounter Care Teams Mri Technician Relationship Specialty Start Date End Date Cynthia House MD [address] [place] [address] PCP - General Family Practice 11/26/20 Chase Mora DPT [id number] [facility] [address] [place] [address] Physical Therapist Physical Therapy 03/04/21 documented as of this encounter
--- OUTSIDE RECORDS SUMMARY | 2024-09-02 10:36 | XMS_ITS | Clinical Summary ---
Author Organization [facility] [address] [facility] Address [address] [place] [address] Care Team Providers Care Order Puller Name Role Phone Cynthia House MD Primary Care Provider [phone] Chase Mora DPT Unavailable [phone] Allergies Active Allergy Reactions Criticality Noted Date [...] aortic 04/19/2014 Depression 04/19/2014 Peripheral neuropathy 04/19/2014 Surgical History Surgery Date Site/Laterality Comments APPENDECTOMY KNEE SURGERY TUBAL LIGATION 03/20/1982 - 03/19/1983 BRONCHOSCOPY 03/20/2002 - 03/19/2003 FACET BLOCK LUMBAR SACRAL 1 LEVEL LEFT 02/22/2021 Bi lateral ABDOMINAL SURGERY FACET BLOCK LUMBAR SACRAL 1 LEVEL LEFT 05/25/2021 Bi lateral FACET BLOCK LUMBAR SACRAL 1 LEVEL LEFT 09/27/2021 Bi lateral Medical History Medical History Date Comments GERD (gastroesophageal reflux disease) Hypertension Osteoporosis Sleep apnea Fractures Family History Medical History Relation Name Comments Scoliosis Father Relation Name Status Comments Father Social History Tobacco Use Types Packs/Day Years [...] on file Sexual Orientation Not on file Obstetrics History Last Filed Vital Signs Vital Sign Reading [...] 01/18/2021 10:57 AM CDT Plan of Treatment Health Maintenance Due Date Last Done Comments Breast Cancer Screening-Mammogram 1950 Colon Cancer Screening-Colonoscopy 1950 Depression Screening 1950 Fall Risk Assessment 1950 Hepatitis C Screening 1950 DTaP/Tdap/Td Vaccine (1 - Tdap) 07/19/1962 Hepatitis B Screening 07/19/1969 Zoster Vaccine (2 of 3) 05/15/2013 03/20/2013 Well Visit 65+ 07/19/2016 Osteoporosis Screening-Bone Density Scan 08/06/2023 08/05/2021 Covid-19 Vaccine (2023-2 5 season) 2023 12/17/2020, 05/13/2020, 04/23/2020 Influenza Vaccine (Season Ended) 2024 01/28/2020, 01/15/2019, 12/28/2017, Additional history exists Pneumococcal vaccine 65+ Completed 020, 03/01/2017, 10/17/2014 Insurance [facility] MEDICARE ADVANTAGE [facility] MED[facility] Care Teams Order Puller Relationship Specialty Start Date End Date Cynthia House MD [address] [place] [address] PCP - General Family Practice 11/26/20 Chase Mora DPT [address] [place] [id number] [place] [id number] Physical Therapist Physical Therapy 03/04/21
== END 2024-09-02 09:50 | disposition home or self-care (01) ==
PROVIDERS: Visit Provider Plastic Surgery
DX: M18.12 Unilateral primary osteoarthritis of first carpometacarpal joint, left hand (principal)
CPT/HCPCS: 73130